=== PATIENT | male | born 1985 | race Caucasian/White ===

== ENCOUNTER 2017-05-15 18:32 | Emergency (ER) | payer SELFPAY ==
[2017-05-15 18:32] VITALS: O2SAT 98
[2017-05-15 18:46] VITALS: BP 127/78; PULSE 78; RESP 18; TEMP 99
== END 2017-05-15 19:30 | disposition home or self-care (01) | DRG 153 ==
LOC: ED 18:32
DX: J02.0 Streptococcal pharyngitis (principal)
CPT/HCPCS: 87430; 99282; 99283